=== PATIENT | female | born 1960 ===

== ENCOUNTER 2022-07-28 11:36 | Outpatient (CLI) | payer OTHER | END 2022-07-28 11:43 | disposition home or self-care (01) | LOC: RAD 11:36 | PROVIDERS: ATTEND Orthopaedic Surgery Hand Surgery | DX: S52.532A Colles' fracture of left radius, initial encounter for closed fracture (principal) ==

== ENCOUNTER 2022-09-15 09:45 | Outpatient (CLI) | payer OTHER | END 2022-09-15 09:55 | disposition home or self-care (01) | LOC: RAD 09:45 | PROVIDERS: ATTEND Orthopaedic Surgery Hand Surgery | DX: S52.532A Colles' fracture of left radius, initial encounter for closed fracture (principal) ==